=== PATIENT | male | born 2000 | race Hispanic/Latino ===

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

== ENCOUNTER 2019-11-04 19:44 | Emergency (ER) | payer SELFPAY | END 2019-11-04 22:11 | disposition home or self-care (01) | LOC: ERS 19:44 | DX: Z03.89 Encounter for observation for other suspected diseases and conditions ruled out (principal); J45.909 Unspecified asthma, uncomplicated; F31.9 Bipolar disorder, unspecified; F17.210 Nicotine dependence, cigarettes, uncomplicated; F90.9 Attention-deficit hyperactivity disorder, unspecified type | CPT/HCPCS: 99282 ==

== ENCOUNTER 2022-05-29 18:31 | Emergency (ER) | payer SELFPAY ==
[2022-05-29] MEDS ORDERED: Lidocaine 1% w/Epinephrine 1:100K 20 ML VIAL ONE (19:01)
[2022-05-29] MEDS ORDERED: Piperacillin/Tazobactam 3.375 GM VIAL ONE (19:01)
[2022-05-29] MEDS ORDERED: Diazepam 5 MG TAB ONE (19:20)
[2022-05-29] MEDS ORDERED: Diazepam 10 MG/2 ML SYRINGE ONE (19:20)
[2022-05-29 19:24] LABS: Mean Corpuscular HGB CONC 34.1 g/dL (32.0-36.0); Mean Corpuscular Hemoglobin 32.6 pg (27.0-31.0); Mean Corpuscular Volume 95.7 fl (78.0-98.0); Platelet Count 243 10x3/uL (130-400); RBC Distribution Width 12.2 % (11.5-14.5); Red Blood Cell (RBC) Count 5.22 mill/uL (4.70-6.10); White Blood Cell (WBC) Count 20.3 10x3/uL (4.8-10.8)
[2022-05-29 19:36] LABS: Band 4 % (5-11); Lymphocytes 14 % (21-51); MDiff Complete? YES; Monocytes 4 % (0-10); Neutrophil 77 % (42-75); Platelet Morphology Comment Appears Adequate; RBC Morphology Normal; Reactive Lymphocytes 1 % (0-10)
[2022-05-29 22:08] LABS: ALT (SGPT) 36 U/L (8-55); AST (SGOT) 22 U/L (5-34); Albumin 4.9 g/dL (3.5-5.0); Alkaline Phosphatase 125 U/L (40-110); Anion Gap 15 mmol/L (10-20); BUN (Urea Nitrogen) 10 mg/dL (8.9-20.6); Bilirubin, Total 0.6 mg/dL (0.2-1.2); Calc. Creatinine Clearance 0 mL/min (70-130); Calcium 9.8 mg/dL (7.8-10.44); Carbon Dioxide 25 mmol/L (22-29); Chloride 102 mmol/L (98-107); Estimated GFR 118; Globulin 3.7 g/dL (2.4-3.5); Glucose 82 mg/dL (70-105); Potassium 4.1 mmol/L (3.5-5.1); Protein, Total 8.6 g/dL (6.0-8.3); Sodium 138 mmol/L (136-145)
== END 2022-05-29 22:15 | disposition home or self-care (01) ==
LOC: ERS 18:31
DX: L02.215 Cutaneous abscess of perineum (principal); J45.909 Unspecified asthma, uncomplicated; F17.210 Nicotine dependence, cigarettes, uncomplicated
CPT/HCPCS: 10060; 80053; 83605; 85025; 87040; 87070; 87205; 96365; J2543; J3360

== ENCOUNTER 2022-09-18 16:58 | Emergency (ER) | payer SELFPAY ==
[2022-09-18] MEDS ORDERED: Ondansetron PF 4 MG/2 ML Vial ONE (17:14)
[2022-09-18] MEDS ORDERED: Morphine 4 MG/ML VIAL ONE (17:14)
[2022-09-18] MEDS ORDERED: Ketamine 50 MG/ML (10ML VIAL) ONE (17:47)
== END 2022-09-18 19:08 | disposition home or self-care (01) ==
LOC: ERS 16:58
DX: S43.014A Anterior dislocation of right humerus, initial encounter (principal); S43.034A Inferior dislocation of right humerus, initial encounter; F17.210 Nicotine dependence, cigarettes, uncomplicated; X58.XXXA Exposure to other specified factors, initial encounter
CPT/HCPCS: 23650; 96374; 96375; 99152; J2270; J2405